=== PATIENT | female | born 1960 | race Caucasian/White ===

== ENCOUNTER 2019-03-09 11:42 | Outpatient (CLI) | payer BC ==
--- NOTE | 2019-03-09 11:09 | HP ---
HISTORY OF PRESENT ILLNESS: Ms. Marlena Noriega is a very pleasant 58-year-old, who [facility] for evaluation of a pressure ulceration of the right medial buttock. The patient is accompanied by her caregiver today. Apparently, the pressure ulceration was first noted a little over 2 weeks ago. For the wound, the patient has been receiving dressing changes of Neosporin and Carlito's Butt Paste followed by Tegaderm oval foam. The patient was referred to the [facility] by Dr. Wu on 03/02/2019. PAST MEDICAL HISTORY: 1. Multiple sclerosis. 2. Hypertension. 3. Urinary incontinence. PAST SURGICAL HISTORY: Negative. MEDICATIONS: 1. Provigil. 2. Cymbalta. 3. Amlodipine. 4. Vitamin C. 5. Myrbetriq. 6. Biotin. 7. Coenzyme Q10. 8. Alpha lipoic acid. 9. Vitamin D. 10. Ampyra. 11. Baclofen. 12. Ibuprofen p.r.n. 13. Vitamins. ALLERGIES: NO KNOWN DIAGNOSED ALLERGIES. SOCIAL HISTORY: Social history is negative for tobacco or EtOH use. FAMILY HISTORY: Family history is significant for coronary artery disease. The patient's father was diagnosed with coronary artery disease. Family history is negative for diabetes mellitus. PHYSICAL EXAMINATION: VITAL SIGNS: Temperature 98.1, pulse 95, respirations are 16, and blood pressure 126/77. GENERAL: A 58-year-old female reclining in wheelchair in no acute distress. HEENT: Normocephalic and atraumatic. NECK: No nuchal rigidity. CHEST: Clear to auscultation. CV: Regular rate and rhythm. ABDOMEN: Soft. EXTREMITIES: No clubbing or cyanosis. BACK: The wound of the right medial buttock has healed completely. ASSESSMENT/PLAN: 1. Pressure ulceration of right medial buttock. As stated above, the wound has completely healed. The patient and her caregiver have been reassured that the wound has completely healed and that dressing changes are no longer necessary. Ms. Noriega will be discharged from clinic today with followup on a p.r.n. basis. 2. Multiple sclerosis. 3. Hypertension. 4. Urinary incontinence. The patient states that she has an appointment with Urology later today for evaluation for suprapubic catheter placement. Job ID: [id number]
== END 2019-03-09 11:43 | disposition home or self-care (01) ==
LOC: WCC 11:42
PROVIDERS: ATTEND Family Medicine
DX: L89.319 Pressure ulcer of right buttock, unspecified stage (principal); G35 Multiple sclerosis; I10 Essential (primary) hypertension; R32 Unspecified urinary incontinence
CPT/HCPCS: 97602; 99203; G0463

== ENCOUNTER 2019-03-18 10:59 | Outpatient (CLI) | payer BC ==
--- NOTE | 2019-03-18 11:57 | ULT ---
Bilateral renal ultrasound CLINICAL INDICATION: Neurogenic bladder COMPARISON: None FINDINGS: Right kidney: No solid mass, or hydronephrosis. Left kidney: No solid mass, or hydronephrosis. Urinary bladder: Normal IMPRESSION: Unremarkable exam.
== END 2019-03-18 11:00 | disposition home or self-care (01) ==
LOC: SCSULT 10:59
PROVIDERS: ATTEND Urology
DX: N39.41 Urge incontinence (principal); N31.9 Neuromuscular dysfunction of bladder, unspecified
CPT/HCPCS: 76770

== ENCOUNTER 2019-06-23 10:20 | Outpatient (CLI) | payer BC ==
--- NOTE | 2019-06-23 11:24 | MMO ---
Bilateral MAMMO Bilat Screen [facility]DI[facility]DOMI. CLINICAL HISTORY: Patient is 58 years old and is seen for screening. The patient has no family history of breast cancer. The patient has no personal history of cancer. VIEWS: The views performed were: bilateral craniocaudal with tomosynthesis; bilateral mediolateral oblique with tomosynthesis; and left exaggerated craniocaudal. FILMS COMPARED: The present examination has been compared to a prior imaging study performed at [facility] on 02/13/2017. This study has been interpreted with the assistance of computer-aided detection. MAMMOGRAM FINDINGS: There are scattered fibroglandular densities. There are no suspicious masses, suspicious calcifications, or new areas of architectural distortion. IMPRESSION: THERE IS NO MAMMOGRAPHIC EVIDENCE OF MALIGNANCY. A ROUTINE FOLLOW-UP MAMMOGRAM IN 1 YEAR IS RECOMMENDED. THE RESULTS OF THIS EXAM WERE SENT TO THE PATIENT. ACR BI-RADS Category 1 - Negative MAMMOGRAPHY NOTE: 1. A negative mammogram report should not delay a biopsy if a dominant of clinically suspicious mass is present. 2. Approximately 10% to 15% of breast cancers are not detected by mammography. 3. Adenosis and dense breasts may obscure an underlying neoplasm. Reported by: VERONICA BLANCHARD MD Electonically Signed: [id number]
== END 2019-06-23 10:21 | disposition home or self-care (01) ==
LOC: BICMAMMO 10:20
PROVIDERS: ATTEND Internal Medicine
DX: Z12.31 Encounter for screening mammogram for malignant neoplasm of breast (principal)
CPT/HCPCS: 77063; 77067

== ENCOUNTER 2019-06-25 09:05 | Outpatient (CLI) | payer BC ==
--- NOTE | 2019-06-26 15:20 | RAD ---
MODIFIED BARIUM SWALLOW: HISTORY: Dysphagia, oropharyngeal phase. Feeding difficulties. FINDINGS: This examination was performed by speech pathology and varying consistencies of barium were administe red during the exam. There is mild difficulty of formation of the bolus into the posterior pharynx. T here is premature spill of contrast into the vallecula and prior to initiation of the swallowing mech anism. There are episodes of penetration with the thin liquid barium and nectar consistency barium du ring the exam. On one of the episodes of penetration, trace aspiration could not be entirely excluded . IMPRESSION: Episodes of mild penetration with thin liquid barium. POS: YONY
== END 2019-06-25 09:06 | disposition home or self-care (01) ==
PROVIDERS: ATTEND Internal Medicine
DX: R13.12 Dysphagia, oropharyngeal phase (principal); R63.3 Feeding difficulties
CPT/HCPCS: 74230

== ENCOUNTER 2019-09-04 09:34 | Outpatient (CLI) | payer BC ==
--- NOTE | 2019-09-04 10:00 | RAD ---
XR Chest Pa Lat STANDARD History: Cough Comparison: Radiograph 2013 Findings: Lungs are clear. No pneumothorax. No effusion. No confluent airspace consolidation. No acut e osseous abnormality. Old right-sided rib fractures, although new from 2013. Impression: No acute intrathoracic abnormality.
== END 2019-09-04 09:35 | disposition home or self-care (01) ==
LOC: BICRAD 09:34
PROVIDERS: ATTEND Internal Medicine
DX: R05 Cough (principal)
CPT/HCPCS: 71046

== ENCOUNTER 2021-04-25 19:30 | Outpatient (CLI) | payer BC | END 2021-04-25 19:31 | disposition home or self-care (01) | LOC: SLEEPLAB 19:30 | PROVIDERS: ATTEND Internal Medicine Critical Care Medicine | DX: G47.33 Obstructive sleep apnea (adult) (pediatric) (principal); R06.83 Snoring; G47.10 Hypersomnia, unspecified; E66.9 Obesity, unspecified; Z68.31 Body mass index [BMI] 31.0-31.9, adult | CPT/HCPCS: 95811 ==

== ENCOUNTER 2021-09-06 16:58 | Outpatient (CLI) | payer BC | END 2021-09-06 16:59 | disposition home or self-care (01) | LOC: RAD 16:58 | PROVIDERS: ATTEND Internal Medicine | DX: R50.9 Fever, unspecified (principal) | CPT/HCPCS: 71046 ==

== ENCOUNTER 2022-07-20 14:20 | Outpatient (CLI) | payer BC | END 2022-07-20 14:21 | disposition home or self-care (01) | LOC: BICRAD 14:20 | PROVIDERS: ATTEND Internal Medicine | DX: M25.552 Pain in left hip (principal) ==

== ENCOUNTER 2023-05-20 16:31 | Outpatient (CLI) | payer BC | END 2023-05-20 16:32 | disposition home or self-care (01) | LOC: SCSRAD 16:31 | PROVIDERS: ATTEND Nurse Practitioner Family | DX: M89.8X5 Other specified disorders of bone, thigh (principal); M85.852 Other specified disorders of bone density and structure, left thigh ==

== ENCOUNTER 2024-06-23 13:05 | Outpatient (CLI) | payer MEDICARE | END 2024-06-23 13:06 | disposition home or self-care (01) | PROVIDERS: ATTEND Internal Medicine | DX: G35 Multiple sclerosis (principal); Z99.3 Dependence on wheelchair ==

== ENCOUNTER 2024-07-07 06:22 | Day surgery (SDC) | payer MEDICARE ==
[2024-07-06 15:22] VITALS: BMI 30.2
[2024-07-07] MEDS ORDERED: fentaNYL 50 mcg/mL 1 mL Vial ONE (06:42)
[2024-07-07] MEDS ORDERED: Midazolam HCl 2 mg/2 ml Vial ONE (06:42)
[2024-07-07] MEDS ORDERED: PROPOFOL 20 ML ONE (06:42)
[2024-07-07] MEDS ORDERED: PHENYLephrine 2.5% Ophth Soln 15 ml Bottle ONE (06:47)
[2024-07-07] MEDS ORDERED: Cyclopentolate 1% Opth Drop 2 ML BOT ONE (06:47)
[2024-07-07] MEDS ORDERED: CEFAZOLIN 1 GM VIAL ONE (07:47)
[2024-07-07] MEDS ORDERED: Maxitrol 0.1% Opth Oint 3.5 GM TUBE ONE (07:47)
[2024-07-07] MEDS ORDERED: Lidocaine 4% PF 5 ML AMP ONE (07:47)
[2024-07-07] MEDS ORDERED: Bupivacaine 0.75% 10 ML VIAL ONE (07:47)
[2024-07-07] MEDS ORDERED: Triamcinolone 40 MG/ML VIAL ONE (07:47)
[2024-07-07] MEDS ORDERED: Lidocaine 1% PF 5 ML VIAL ONE (07:47)
[2024-07-07] MEDS ORDERED: EPINEPHrine 0.3 MG in Ophthalmic Irrigation Solution 500 ML IRR SCH (09:00)
== END 2024-07-07 08:40 | disposition home or self-care (01) ==
LOC: SDC 06:22
PROVIDERS: ATTEND Ophthalmology Retina Specialist
PROC: 08N53ZZ Release Left Vitreous, Percutaneous Approach (ICD-10-PCS; principal; 2024-07-07)
DX: H43.12 Vitreous hemorrhage, left eye (principal); H33.312 Horseshoe tear of retina without detachment, left eye
CPT/HCPCS: 67039; J0171; J0690; J2250; J2704; J3301; J3490; J3010

== ENCOUNTER 2025-06-25 05:53 | Day surgery (SDC) | payer MEDICARE ==
[2025-06-24 14:04] VITALS: BMI 30.2
[2025-06-25] MEDS ORDERED: PROPOFOL 20 ML ONE (06:35)
[2025-06-25 06:39] LABS: #Basophils 0.08 10x3/uL (0.0-0.2); #Eosinophils 0.25 10x3/uL (0.0-0.7); #Monocytes 0.73 10x3/uL (0.11-0.59); #Neutrophils 3.50 10x3/uL (1.40-6.50); %Basophils 1.2 % (0.0-1.0); %Eosinophils 3.7 % (0.0-10.0); %Lymphocytes 32.5 % (21.0-51.0); %Monocytes 10.8 % (0.0-10.0); %Neutrophils 51.5 % (42.0-75.0); Hematocrit 40.2 % (36.0-47.0); Hemoglobin 13.3 g/dL (12.0-16.0); Mean Corpuscular Hemoglobin 29.7 pg (27.0-31.0); Mean Corpuscular Volume 89.7 fL (78.0-98.0); Platelet Count 317 10x3/uL (130-400); Red Blood Cell (RBC) Count 4.48 mill/uL (4.20-5.40); White Blood Cell (WBC) Count 6.79 10x3/uL (4.8-10.8)
[2025-06-25] MEDS ORDERED: CEFAZOLIN 2 GM VIAL ONE (07:01)
[2025-06-25] MEDS ORDERED: Botulinum Toxin 200 UNITS VIAL FS SCH (07:15)
== END 2025-06-25 09:00 | disposition home or self-care (01) ==
LOC: SDC 05:53
PROVIDERS: ATTEND Orthopaedic Surgery Hand Surgery
PROC: 3E023GC Introduction of Other Therapeutic Substance into Muscle, Percutaneous Approach (ICD-10-PCS; principal; 2025-06-25)
DX: M62.421 Contracture of muscle, right upper arm (principal); M62.422 Contracture of muscle, left upper arm; G80.1 Spastic diplegic cerebral palsy; G35.D Multiple sclerosis, unspecified; I10 Essential (primary) hypertension; E78.5 Hyperlipidemia, unspecified; S52.515A Nondisplaced fracture of left radial styloid process, initial encounter for closed fracture; R60.0 Localized edema; Z96.642 Presence of left artificial hip joint; Z91.048 Other nonmedicinal substance allergy status; X58.XXXA Exposure to other specified factors, initial encounter
CPT/HCPCS: 64642; 64643; 85025; 93005; J0585; J2704; 93010; J2250; J3010

== ENCOUNTER 2025-08-03 08:28 | Day surgery (SDC) | payer MEDICARE ==
[2025-08-03 08:44] LABS: #Basophils 0.07 10x3/uL (0.0-0.2); #Eosinophils 0.21 10x3/uL (0.0-0.7); #Monocytes 0.56 10x3/uL (0.11-0.59); #Neutrophils 3.43 10x3/uL (1.40-6.50); %Basophils 1.2 % (0.0-1.0); %Eosinophils 3.5 % (0.0-10.0); %Lymphocytes 28.3 % (21.0-51.0); %Monocytes 9.4 % (0.0-10.0); %Neutrophils 57.4 % (42.0-75.0); Hematocrit 43.6 % (36.0-47.0); Hemoglobin 14.2 g/dL (12.0-16.0); Mean Corpuscular Hemoglobin 29.9 pg (27.0-31.0); Mean Corpuscular Volume 91.8 fL (78.0-98.0); Platelet Count 288 10x3/uL (130-400); Red Blood Cell (RBC) Count 4.75 mill/uL (4.20-5.40); White Blood Cell (WBC) Count 5.97 10x3/uL (4.8-10.8)
[2025-08-03] MEDS ORDERED: LevoFLOXacin D5W 500 mg (100 mL) BAG ONE (08:55)
[2025-08-03 08:59] LABS: INR-International Normal Ratio 1.0; Prothrombin Time 12.8 sec (12.0-14.7)
[2025-08-03 09:00] LABS: PTT 32.4 sec (22.9-36.1)
[2025-08-03 10:35] VITALS: BP 175/94
[2025-08-03] MEDS ORDERED: Lidocaine 1% PF 5 ML VIAL ONE (11:20)
[2025-08-03] MEDS ORDERED: Sodium Bicarbonate 2.5 MEQ/5 ML SDV ONE (11:21)
[2025-08-03] MEDS ORDERED: Lidocaine 2% 6 ML (Jelly) SYR ONE (11:42)
[2025-08-03] MEDS ORDERED: FLU (Fluarix Triv) 25-26 (6MOS UP)/PF 45 MCG/0.5 ML Syringe IM ONE (14:00)
== END 2025-08-03 14:15 | disposition home or self-care (01) ==
LOC: CT 08:28
PROVIDERS: ATTEND Urology
DX: R33.9 Retention of urine, unspecified (principal)
CPT/HCPCS: 36000; 76380; 76937; 85025; 85610; 85730; A4314; J1956; 36415; J2250; J3010

== ENCOUNTER 2025-08-18 08:51 | Day surgery (SDC) | payer MEDICARE ==
[2025-08-18] MEDS ORDERED: Hyoscyamine SL 0.125 MG TAB ONE (10:16)
[2025-08-18] MEDS ORDERED: Lidocaine 2% 6 ML (Jelly) SYR ONE (10:17)
[2025-08-18] MEDS ORDERED: Lidocaine 1% w/Epinephrine 1:100K 20 ML VIAL ONE (10:17)
[2025-08-18] MEDS ORDERED: Sodium Bicarbonate 2.5 MEQ/5 ML SDV ONE (10:17)
[2025-08-18] MEDS ORDERED: Hyoscyamine SL 0.125 MG TAB SL SCH (10:30)
[2025-08-18] MEDS ORDERED: Ondansetron PF 4 MG/2 ML Vial ONE (10:52)
== END 2025-08-18 13:30 | disposition home or self-care (01) ==
LOC: CT 08:51
PROVIDERS: ATTEND Urology
PROC: 0T9B70Z Drainage of Bladder with Drainage Device, Via Natural or Artificial Opening (ICD-10-PCS; principal; 2025-08-18)
DX: R32 Unspecified urinary incontinence (principal)
CPT/HCPCS: 36000; 51102; 76937; 77002; 77012; A4314; A4344; C1726; C1769; C2627; J2250; J2405; J3010